=== PATIENT | female | born 1985 | race Caucasian/White ===

== ENCOUNTER 2016-06-01 21:00 | Emergency (ER) | payer BC, OTHER ==
[~2016-06-01] VITALS: Ht 167.6 cm; Wt 78.0 kg
[2016-06-01 21:01] VITALS: Ht 167.6 cm; Wt 78.0 kg
[2016-06-01 22:52] LABS: BASOPHILS % 0.3 % (0.0-2.0); EOSINOPHILS # 0.1 10^3/ul (0.0-0.5); EOSINOPHILS % 0.9 % (0.0-7.0); HEMATOCRIT 39.1 % (37.0-47.0); HEMOGLOBIN 13.4 g/dl (12.0-16.0); LYMPHOCYTES # 2.5 10^3/ul (0.8-2.9); LYMPHOCYTES % 28.5 % (15.0-51.0); MEAN CORPUSCULAR HEMOGLOBIN 30.4 pg (29.0-33.0); MEAN CORPUSCULAR HGB CONC 34.2 g/dl (32.0-37.0); MEAN CORPUSCULAR VOLUME 88.8 fl (82.0-101.0); MEAN PLATELET VOLUME 9.7 fl (7.4-10.4); MONOCYTE # 0.5 10^3/ul (0.3-0.9); MONOCYTES % 5.5 % (0.0-11.0); NEUTROPHIL # 5.8 10^3/ul (1.6-7.5); NEUTROPHILS % 64.8 % (39.0-77.0); PLATELET COUNT 162 10^3/UL (140-440); RED BLOOD COUNT 4.41 10^6/ul (4.20-5.40); RED CELL DISTRIBUTION WIDTH 12.8 % (11.5-14.5); UNCORRECTED WBC 8.9 10^3/ul (4.8-10.8); WHITE BLOOD COUNT 8.9 10^3/ul (4.8-10.8)
[2016-06-01 22:54] LABS: CONDITION 1
[2016-06-01 23:17] LABS: ADD UMIC YES; URINE BILIRUBIN (Dip) NEGATIVE (NEGATIVE); URINE BLOOD (Dip) 2+ (NEGATIVE); URINE COLOR LT. YELLOW (YELLOW); URINE GLUCOSE (Dip) NEGATIVE (NEGATIVE); URINE KETONES (Dip) TRACE (NEGATIVE); URINE LEUKOCYTE ESTERASE (Dip) NEGATIVE (NEGATIVE); URINE NITRITE (Dip) NEGATIVE (NEGATIVE); URINE TOTAL PROTEIN (Dip) NEGATIVE (NEGATIVE); URINE UROBILINOGEN (Dip) 0.2 E.U./dL (0.1-1.0)
--- NOTE | 2016-06-01 23:17 | RADRPT ---
PROCEDURE: US OB. CLINICAL INDICATION: Pelvic pain and vaginal bleeding. Positive test. TECHNIQUE: Multiple sonographic images of the uterus were obtained with transabdominal so nography. The images were reviewed on a PACS workstation. COMPARISON: No prior studies are available for comparison. FINDINGS: Twin A: No heart motion visualized. Yolk sac is present. [place]-rump length is 0.51 cm. Mean sac diameter is 1.30 cm. Menstrual age by ultrasound dates is 6 weeks 1 day. Twin B: No heart motion is visualized. Yolk sac is present. There is no pole. Mean sac diameter is 1.28 cm. Menstrual age by ultrasound dates is 6 weeks 0 days. There is an adjacent subchorionic hemorrhage. The ovaries are normal with the right ovary measuring 3.3 x 2.0 x 2.2 cm and the left ovary measurin g 3.4 x 2.5 x 3.1 cm. IMPRESSION: 1. Twin gestation. Both are probably failed pregnancies. Follow-up ultrasound in 7 days advised. RPTAT: QQ .Mason Rubalcava MD, Date Time Electronically viewed and signed by .Mason Rubalcava MD, MD on 06/01/2016 23:16 .R/
[2016-06-01 23:35] LABS: BACTERIA,URINE MODERATE; SQUAMOUS EPITHELIAL CELL,UR MODERATE
[2016-06-02 00:39] VITALS: BP 137/60; PULSE 78; RESP 18
--- NOTE | 2016-06-02 01:01 | ERD ---
ER Documentation Chief Complaint Date/Time DATE: 06/02/16 TIME: 00:57 Chief Complaint 10 wks preg & bleeding vaginally, hx ectopic preg HPI This is a 31-year-old female A2 (ectopic preg 6 months ago and 1 elective ) stating that she is 10 weeks presenting to the emergency department complaining of heavy vaginal bleeding that started yesterday. Patient states that the for the past 2 hours she has been using 2 pads. She describes as brown. Patient states that she has an GROUND HAND Dr. Castle who she will be following up with. Patient denies any urinary symptoms, pelvic pain, dizziness. ROS All systems reviewed and are negative except as per history of present illness. Medications Home Meds No Active Prescriptions or Reported Meds Allergies Allergies: Coded Allergies: No Known Allergy (Verified , 11/15/15) PMhx/Soc History of Surgery: No Anesthesia Reaction: No Hx Neurological Disorder: No Hx Respiratory Disorders: No Hx Cardiac Disorders: No Hx Psychiatric Problems: No Hx Miscellaneous Medical Probl: No Hx Alcohol Use: Yes (OCCASIONALLY) Hx Substance Use: No Hx Tobacco Use: No Smoking Status: Never smoker Physical Exam Vitals Vital Signs Date Time Temp Pulse Resp B/P Pulse Ox O2 Delivery O2 Flow Rate FiO2 06/02/16 00:39 78 18 137/60 99 Room Air 06/01/16 21:01 97.9 89 18 117/67 99 Physical Exam GENERAL: WD/WN, in no apparent distress, non-toxic appearing HENT: NC/AT EYES: Conjunctiva normal NECK: Supple. No meningeal signs PULM: Clear to auscultation bilaterally. Normal labored breathing CV: Regular rate and rhythm, no murmurs GI: Soft, non tender, non distended. Normal bowel sounds BACK: No masses EXT: No clubbing, cyanosis, or edema. NEURO: Awake and Alert SKIN: No petechiae or rashes PSYCH: Normal mood Result Diagram: 06/01/160 Results 24 hrs Laboratory Tests Test 06/01/16 22:20 06/01/16 22:30 Urine Bacteria MODERATE Urine Bilirubin NEGATIVE Urine Clarity CLEAR Urine Color LT. YELLOW Urine Glucose NEGATIVE% Urine Hemoglobin 2+ Urine Ketones TRACE Urine Leukocyte Esterase NEGATIVE Urine Microscopic RBC 2-5/HPF Urine Microscopic WBC 2-5/HPF Urine Nitrite NEGATIVE Urine Specific [place] >=1.030 Urine Squamous Epithelial Cells MODERATE Urine Total Protein NEGATIVE Urine Urobilinogen 0.2 E.U./dL Urine pH 6.0 Basophils # 0.010^3/ul Basophils % 0.3% Beta HCG, Quantitative 55952.0mIU/ml Eosinophils # 0.110^3/ul Eosinophils % 0.9% Hematocrit 39.1% Hemoglobin 13.4g/dl Lymphocytes # 2.510^3/ul Lymphocytes % 28.5% Mean Corpuscular Hemoglobin 30.4pg Mean Corpuscular Hemoglobin Concent 34.2g/dl Mean Corpuscular Volume 88.8fl Mean Platelet Volume 9.7fl Monocytes # 0.510^3/ul Monocytes % 5.5% Neutrophils # 5.810^3/ul Neutrophils % 64.8% Nucleated Red Blood Cells # 0.010^3/ul Nucleated Red Blood Cells % 0.0/100WBC Platelet Count 99871^3/UL Red Blood Count 4.4110^6/ul Red Cell Distribution Width 12.8% White Blood Count 8.910^3/ul Procedures/MDM This is a 31-year-old female A2 (ectopic preg 6 months ago and 1 elective ) stating that she is 10 weeks presenting to the emergency department complaining of heavy vaginal bleeding that started yesterday. This is likely due to a incomplete for twin gestation due to ultrasound finding. There is no evidence of ectopic , molar , patient did not have any anemia. Low suspicion for urinary tract infection. Lab work was done, CBC did not show any evidence of leukocytosis or anemia. Beta hCG was elevated however patient has twin gestation. OB ultrasound was done, radiologist stated: FINDINGS: Twin A: No heart motion visualized. Yolk sac is present. [place]-rump length is 0.51 cm. Mean sac diameter is 1.30 cm. Menstrual age by ultrasound dates is 6 weeks 1 day. Twin B: No heart motion is visualized. Yolk sac is present. There is no pole. Mean sac diameter is 1.28 cm. Menstrual age by ultrasound dates is 6 weeks 0 days. There is an adjacent subchorionic hemorrhage. The ovaries are normal with the right ovary measuring 3.3 x 2.0 x 2.2 cm and the left ovary measuring 3.4 x 2.5 x 3.1 cm. IMPRESSION: 1. Twin gestation. Both are probably failed pregnancies. Follow-up ultrasound in 7 days advised. I have discussed these findings with the patient and discussed that she should follow-up with her GROUND HAND the next couple days and to also repeat her ultrasound with blood work. I discussed return to the ER for any worsening signs or symptoms are not improving as expected. Patient understands and agrees with this plan Departure Diagnosis: Primary Impression: Vaginal bleeding Condition: Fair Patient Instructions: Miscarriage (Incomplete), Possible Miscarriage ( Threatened ) Referrals: MATHEUS CRUZ MD (PCP) Additional Instructions: FOLLOW UP WITH YOUR PRIMARY CARE PHYSICIAN TOMORROW.Return to this facility if you are not improving as expected. Return to this facility if you are not improving as expected. Take documents with you ESTHELA VALDES PA-C Jun 02, 2016 01:00
== END 2016-06-02 00:40 | disposition home or self-care (01) ==
LOC: FTE 21:00
DX: O20.9 Hemorrhage in early pregnancy, unspecified (principal); R10.2 Pelvic and perineal pain; Z3A.01 Less than 8 weeks gestation of pregnancy
CPT/HCPCS: 36415; 76801; 76817; 81001; 81003; 84702; 85025; 86900; 86901